=== PATIENT | female | born 1995 | race Caucasian/White ===

== ENCOUNTER → 2019-06-29 14:10 | Outpatient (CLI) | payer OTHER, SELFPAY ==
[2019-06-29 15:28] LABS: hCG Titer Quant., Serum 12687 mIU/mL (1-3)
== END ==
PROVIDERS: Visit Provider Nurse Practitioner Women's Health
DX: N91.2 Amenorrhea, unspecified (principal)
CPT/HCPCS: 36415; 84702

== ENCOUNTER → 2019-07-22 13:27 | Outpatient (CLI) | payer OTHER, SELFPAY ==
[2019-07-22 08:08] VITALS: BMI 23.8
[2019-07-22 21:40] LABS: Chlamydia Trachomatis by PCR Negative (Negative); Neisserai gonorrhoeae by PCR Negative (Negative); Probe Check PASS; Sample Adequacy Control PASS; Specimen Processing Control PASS
[2019-07-26 16:58] LABS: HPV Reflexed? NOT INDICATED
== END ==
PROVIDERS: Referring Provider Obstetrics & Gynecology; Visit Provider Obstetrics & Gynecology
DX: Z34.90 Encounter for supervision of normal pregnancy, unspecified, unspecified trimester (principal); Z12.4 Encounter for screening for malignant neoplasm of cervix
CPT/HCPCS: 87086; 87491; 87591; 88175; G0145

== ENCOUNTER → 2019-08-22 11:12 | Outpatient (CLI) | payer OTHER, SELFPAY ==
[2019-08-22 10:52] VITALS: BMI 23.8
[2019-08-22 11:51] LABS: Absolute Lymphocyte Count 0.96 X10^3/uL (0.83-4.51); Absolute Neutrophil Count 8.9 X10^3/uL (2.0-7.7); Basophil# 0.02 X10^3/uL; Basophil% 0.2 % (0-1); Eosinophil# 0.05 X10^3/uL; Eosinophils% 0.5 % (0-5); Hematocrit 39.3 % (37-47); Hemoglobin 13.9 g/dL (12.0-15.0); Lymphocyte # 0.96 X10^3/ul (4.0); Lymphocyte % 9.3 % (19-41); Mean Corp Hgb Conc 35.4 g/dL (32-36); Mean Corpuscular Hgb 31.8 pg (27.0-32.0); Mean Corpuscular Volume 89.9 fL (81-99); Mean Platelet Vol. 9.5 fl (6.2-12.0); Monocyte# 0.44 X10^3/uL; Monocyte% 4.2 % (0-10); NRBC Flagged by Analyzer 0 % (0-5); Neutrophil # 8.87 X10^3/uL (2.7-7.7); Neutrophil % 85.5 % (47-70); Platelet Count 160 K/mm3 (150-450); RBC Distribution Width SD 39.1 fl (35.1-43.9); Red Blood Count 4.37 M/mm3 (4.2-5.4); White Blood Count 10.4 K/mm3 (4.4-11.0)
[2019-08-22 12:23] LABS: NATERA MAILED SPECIMEN
[2019-08-22 14:37] LABS: Hepatitis B Surface Antigen Non-Reactive (Nonreactive); Hepatitis C Antibody Non-Reactive (Nonreactive); Rubella IgG 19.1 IU/mL
[2019-08-22 20:09] LABS: HIV - WCH Non-Reactive (Nonreactive)
[2019-08-29 02:55] LABS: Rapid Plasmin Reagin (RPR) NONREACTIVE (NONREACTIVE)
== END ==
PROVIDERS: Referring Provider Obstetrics & Gynecology; Visit Provider Obstetrics & Gynecology
DX: Z34.81 Encounter for supervision of other normal pregnancy, first trimester (principal); Z31.430 Encounter of female for testing for genetic disease carrier status for procreative management
CPT/HCPCS: 36415; 85025; 86592; 86703; 86762; 86803; 86850; 86900; 86901; 87340

== ENCOUNTER → 2019-12-11 11:45 | Outpatient (CLI) | payer OTHER, SELFPAY ==
[2019-12-11 11:07] VITALS: BMI 29.6
[2019-12-11 12:39] LABS: Absolute Lymphocyte Count 1.27 X10^3/uL (0.83-4.51); Basophil# 0.02 X10^3/uL; Basophil% 0.3 % (0-1); Eosinophil# 0.05 X10^3/uL; Eosinophils% 0.6 % (0-5); Hematocrit 36.9 % (37-47); Hemoglobin 12.5 g/dL (12.0-15.0); Lymphocyte # 1.27 X10^3/ul (4.0); Lymphocyte % 16.2 % (19-41); Mean Corp Hgb Conc 33.9 g/dL (32-36); Mean Corpuscular Volume 94.4 fL (81-99); Mean Platelet Vol. 9.9 fl (6.2-12.0); Monocyte# 0.48 X10^3/uL; Monocyte% 6.1 % (0-10); NRBC Flagged by Analyzer 0 % (0-5); Neutrophil # 5.95 X10^3/uL (2.7-7.7); Neutrophil % 75.9 % (47-70); Platelet Count 129 K/mm3 (150-450); RBC Distribution Width CV 12.6 % (11.6-14.6); RBC Distribution Width SD 43.2 fl (35.1-43.9); Red Blood Count 3.91 M/mm3 (4.2-5.4); White Blood Count 7.8 K/mm3 (4.4-11.0)
[2019-12-11 13:00] LABS: Glucose Challenge Gest 1H 50g 78 mg/dL (70-140)
== END ==
LOC: LAB 11:46
PROVIDERS: Referring Provider Obstetrics & Gynecology; Visit Provider Obstetrics & Gynecology
DX: O26.899 Other specified pregnancy related conditions, unspecified trimester (principal); R87.612 Low grade squamous intraepithelial lesion on cytologic smear of cervix (LGSIL); Z67.91 Unspecified blood type, Rh negative; Z3A.28 28 weeks gestation of pregnancy
CPT/HCPCS: 36415; 82950; 85025; 86850; 86900; 86901

== ENCOUNTER → 2020-02-07 | Outpatient (CLI) | payer OTHER, SELFPAY ==
[2020-02-07 08:50] VITALS: BMI 29.6
== END | disposition home or self-care (01) ==
LOC: LABSPEC 12:50
PROVIDERS: Referring Provider Obstetrics & Gynecology; Visit Provider Obstetrics & Gynecology
DX: Z34.93 Encounter for supervision of normal pregnancy, unspecified, third trimester (principal); Z3A.36 36 weeks gestation of pregnancy
CPT/HCPCS: 87081

== ENCOUNTER 2020-02-13 09:55 | Outpatient (CLI) | payer OTHER, MEDICAID, SELFPAY ==
[2020-02-13] VITALS (13 sets, daily range): BP systolic 121–141; BP diastolic 76–100; PULSE 93–115; BMI 29.6; BMI 34.7
[2020-02-13 10:32] LABS: Hematocrit 39.9 % (37-47); Hemoglobin 13.7 g/dL (12.0-15.0); Mean Corp Hgb Conc 34.3 g/dL (32-36); Mean Corpuscular Hgb 32.5 pg (27.0-32.0); Mean Corpuscular Volume 94.8 fL (81-99); Mean Platelet Vol. 11.2 fl (6.2-12.0); Platelet Count 134 K/mm3 (150-450); RBC Distribution Width CV 12.2 % (11.6-14.6); RBC Distribution Width SD 42.3 fl (35.1-43.9); Red Blood Count 4.21 M/mm3 (4.2-5.4); White Blood Count 9.6 K/mm3 (4.4-11.0)
[2020-02-13 11:00] LABS: Prothrombin Time (Protime)PT. 13.1 SECONDS (11.7-14.9)
[2020-02-13 11:01] LABS: Partial Thromboplast Time 28.8 Seconds (24.1-36.2)
[2020-02-13 11:19] LABS: Protein, Urine (Random) 24.4 mg/dL (<11.9); Protein:Creat Ratio 174 mg/g CRE (0-200)
[2020-02-13 12:34] LABS: AST(SGOT) 17 U/L (15-37); Alanine Aminotransfer ALT/SGPT 13 U/L (13-56); EST Glomerular Filtration Rate 107 mL/min (>60); Est Glom Filt Rate - Afr Amer 129 mL/min (>60); Estimated Creatinine Clearance 96.32 ml/min; Uric Acid 5.3 mg/dL (2.6-6.0)
[2020-02-14 10:11] VITALS: BP 118/62; PULSE 120
--- NOTE | 2020-02-14 22:13 | OB.TRI.PN_ITS ---
Progress Notes Date of Service: 02/13/20 Progress Note: Patient presents for triage evaluation secondary to elevated blood pressures in the office FHT: 130 Moderate variability reactive no decelerations category I tracing [place]: Irritability contractions Assessment and plan: Gestational hypertension normal labs negative proteinuria patient is asymptomatic but blood pressures are 140s over 90s recommend delivery since she is after 37 weeks. Due to staffing availability will return tomorrow induction of labor reactive NST, reassuring maternal and status patient discharged to home to follow-up for induction of labor tomorrow with Pitocin and Church bulb. See problem list details for additional plan information. Laboratory Studies: Laboratory Tests 02/13/20 02/13/20 02/13/20 Range/Units 13:30 10:13 10:10 WBC (4.4-11.0) K/mm3 RBC (4.2-5.4) M/mm3 Hgb (12.0-15.0) g/dL Hct (37-47) % MCV (81-99) fL MCH (27.0-32.0) pg MCHC (32-36) g/dL RDW Std Deviation (35.1-43.9) fl RDW Coeff of Vazquez (11.6-14.6) % Plt Count (150-450) K/mm3 MPV (6.2-12.0) fl PT (11.7-14.9) SECONDS INR APTT (24.1-36.2) Seconds Creatinine 0.70 (0.55-1.02) mg/dL Estim Creat Clear Calc 96.32 ml/min Est GFR (MDRD) Af Amer 129 (>60) mL/min Est GFR (MDRD) Non-Af 107 (>60) mL/min Uric Acid 5.3 (2.6-6.0) mg/dL AST 17 (15-37) U/L ALT 13 (13-56) U/L U Random Total Protein 24.4 H (<11.9) mg/dL Urine Creatinine 140.00 (NO RANGE EST.) mg/dL Protein/Creatinin Ratio 174 (0-200) mg/g CRE COVID-19 (KAYLI) Not Detected (Not Detect) 02/13/20 02/13/20 Range/Units 10:10 10:10 WBC 9.6 (4.4-11.0) K/mm3 RBC 4.21 (4.2-5.4) M/mm3 Hgb 13.7 (12.0-15.0) g/dL Hct 39.9 (37-47) % MCV 94.8 (81-99) fL MCH 32.5 H (27.0-32.0) pg MCHC 34.3 (32-36) g/dL RDW Std Deviation 42.3 (35.1-43.9) fl RDW Coeff of Vazquez 12.2 (11.6-14.6) % Plt Count 134 L (150-450) K/mm3 MPV 11.2 (6.2-12.0) fl PT 13.1 (11.7-14.9) SECONDS INR 1.0 APTT 28.8 (24.1-36.2) Seconds Creatinine (0.55-1.02) mg/dL Estim Creat Clear Calc ml/min Est GFR (MDRD) Af Amer (>60) mL/min Est GFR (MDRD) Non-Af (>60) mL/min Uric Acid (2.6-6.0) mg/dL AST (15-37) U/L ALT (13-56) U/L U Random Total Protein (<11.9) mg/dL Urine Creatinine (NO RANGE EST.) mg/dL Protein/Creatinin Ratio (0-200) mg/g CRE COVID-19 (KAYLI) (Not Detect) - Problem List (1) Gestational hypertension Status: Acute Multi Select Codes - Urinary/Genital Urinary/Genital CPT Codes: 31284-77 non-stress test Interp
== END 2020-02-13 14:00 | disposition home or self-care (01) ==
LOC: WPOUT 10:01 → WP 10:02
PROVIDERS: Referring Provider Obstetrics & Gynecology; Visit Provider Obstetrics & Gynecology
DX: O13.3 Gestational [pregnancy-induced] hypertension without significant proteinuria, third trimester (principal); Z3A.37 37 weeks gestation of pregnancy
CPT/HCPCS: 36415; 59025; 59050; 82565; 82570; 84156; 84450; 84460; 84550; 85027; 85610; 85730; 87635; 94799; 99218; G2023; G0378; U0003

== ENCOUNTER 2020-02-14 14:10 | Inpatient (IN) | payer OTHER, MEDICAID, SELFPAY ==
[2020-02-13 10:13] VITALS: BMI 34.7
[2020-02-14] VITALS (20 sets, daily range): BP systolic 110–145; BP diastolic 61–100; PULSE 74–142; RESP 17–18; TEMP 36.4–37.3; O2SAT 97–98; BMI 34.4
[2020-02-14] MEDS: Lactated Ringers 1,000 ML 50 ML IV (14:25)
[2020-02-14] MEDS: Oxytocin 30 units/NS 500 ml 30 UNITS/500 ML IV.SOLN IV (14:55)
[2020-02-14] MEDS: 0.9% Normal Saline Single 100 ML IV.SOLN. IY (14:58)
[2020-02-14 15:09] LABS: Absolute Lymphocyte Count 1.04 X10^3/uL (0.83-4.51); Absolute Neutrophil Count 7.3 X10^3/uL (2.0-7.7); Basophil# 0.01 X10^3/uL; Basophil% 0.1 % (0-1); Eosinophil# 0.01 X10^3/uL; Eosinophils% 0.1 % (0-5); Hematocrit 39.6 % (37-47); Hemoglobin 13.5 g/dL (12.0-15.0); Lymphocyte # 1.04 X10^3/ul (4.0); Lymphocyte % 11.5 % (19-41); Mean Corp Hgb Conc 34.1 g/dL (32-36); Mean Corpuscular Hgb 32.3 pg (27.0-32.0); Mean Corpuscular Volume 94.7 fL (81-99); Mean Platelet Vol. 11.4 fl (6.2-12.0); Monocyte# 0.57 X10^3/uL; Monocyte% 6.3 % (0-10); NRBC Flagged by Analyzer 0 % (0-5); Neutrophil # 7.33 X10^3/uL (2.7-7.7); Neutrophil % 81.3 % (47-70); Platelet Count 150 K/mm3 (150-450); RBC Distribution Width CV 12.3 % (11.6-14.6); RBC Distribution Width SD 42.5 fl (35.1-43.9); Red Blood Count 4.18 M/mm3 (4.2-5.4)
[2020-02-14 15:25] LABS: ALB/GLOB Ratio 0.7 RATIO (0.9-2.4); AST(SGOT) 22 U/L (15-37); Alanine Aminotransfer ALT/SGPT 16 U/L (13-56); Albumin, Serum 2.8 g/dL (3.2-5.0); Alkaline Phosphatase 133 U/L (45-117); Anion Gap 7 (5-15); BUN 12 mg/dL (7-18); BUN/Creat Ratio 18.9 RATIO (10-20); Calcium,Total 8.9 mg/dL (8.5-10.1); Chloride 109 mmol/L (98-107); Creatinine, Serum 0.64 mg/dL (0.55-1.02); EST Glomerular Filtration Rate 120 mL/min (>60); Est Glom Filt Rate - Afr Amer 146 mL/min (>60); Estimated Creatinine Clearance 105.35 ml/min; Globulin 3.9 g/dL (2.2-4.2); Glucose 114 mg/dL (74-106); Potassium 3.8 mmol/L (3.5-5.1); Protein, Total 6.7 g/dL (6.4-8.2); Sodium Level 138 mmol/L (136-145)
[2020-02-14] MEDS: Lactated Ringers 500 ML 999 ML IV ×2 (18:56→20:26)
[2020-02-14] MEDS: Mag Hydrox/Al Hydrox/Simeth 30 ML UDC PO (19:42)
[2020-02-14] MEDS: Sodium Citrate/Citric Acid 30 ML UDC PO (20:58)
--- NOTE | 2020-02-14 21:05 | PCM.HP.OB ---
- Problem List (1) Gestational hypertension Status: Acute (2) Gestational thrombocytopenia Status: Acute Comment: stable (3) Rh negative status during Status: Acute Qualifiers: Comment: rhogam at 28 weeks and PRN (4) LGSIL on Pap smear of cervix Status: Acute Comment: colp consistent 10/03. plan PP pap (5) Status: Acute Qualifiers: Comment: NIPT low risk. Carrier screening negative. declined ntd screening. Anatomy nl. (6) Supervision of normal Status: Acute Qualifiers: Comment: PRR ROMULO 02/29/20 Girl Helen boyhina Art (juan miguel) History Date of Admission: 02/14/20 Final ROMULO: 02/29/20 Gestational age: 37 Weeks and 6 Days History of this : This is a 25 year-old, , at 37 weeks gestational age presents IOL GHTN. She was seen in the office yesterday and was noted to have elevated blood pressures in the 140s over 90s. Patient had normal laboratory evaluation except for gestational thrombocytopenia that was stable. Negative proteinuria. Patient's induction was on hold due to staffing and brought in today for induction of labor via Pitocin and Church bulb. Allergies No Known Allergies Allergy (Verified 02/14/20 14:31) Home Medications: Home Medications docosahexaenoic acid 200 mg capsule 200 mg PO DAILY cap 07/22/19 Smoking Status: Never smoker Number of Fetus(es): 1 NST - FHR Rate Baby A Baseline: 130 Variability:: Moderate Accelerations:: 15 x 15 Decelerations:: None NST Reactive:: Yes FHR Category:: Category I Uterine Activity:: no regular History Past Pregnancies: Past Pregnancies Delivery Date Name GA/ Weeks Outcome Route Wt Infant Sex Labor Length Anesthesia Delivery Location Provider FOB Labs: [facility] & Results 02/14/20 02/14/20 02/14/20 14:25 14:25 14:25 WBC 9.0 RBC 4.18 L Hgb 13.5 Hct 39.6 MCV 94.7 MCH 32.3 H MCHC 34.1 RDW Std Deviation 42.5 RDW Coeff of Vazquez 12.3 Plt Count 150 MPV 11.4 Immature Gran % (Auto) 0.700 Neut % (Auto) 81.3 H Lymph % (Auto) 11.5 L Wilkin % (Auto) 6.3 Eos % (Auto) 0.1 Baso % (Auto) 0.1 Absolute Neuts (auto) 7.3 Absolute Lymphs (auto) 1.04 Nucleated RBC % 0 Sodium 138 Potassium 3.8 Chloride 109 H Carbon Dioxide 22.0 Anion Gap 7 BUN 12 Creatinine 0.64 Estim Creat Clear Calc 105.35 Est GFR (MDRD) Af Amer 146 Est GFR (MDRD) Non-Af 120 BUN/Creatinine Ratio 18.9 Glucose 114 H Calcium 8.9 Total Bilirubin 0.40 AST 22 ALT 16 Alkaline Phosphatase 133 H Total Protein 6.7 Albumin 2.8 L Globulin 3.9 Albumin/Globulin Ratio 0.7 L Blood Type O NEGATIVE Antibody Screen NEGATIVE Course Did the patient receive Yes care? Labs Blood Type: O RH: NEGATIVE RPR/VDRL/Syphilis Nonreactive Rubella status Immune HbSAg Negative Date Done: 08/22/19 Chlamydia Negative Gonorrhea Negative HIV/AIDS Non-Reactive Group B Strep: Negative Current Obstetrical History Gestational Diabetes No Incompetent Cervix No Infertility No IUGR No Macrosomia No Hypertension/Pre-eclampsia Yes Placenta Previa/Abruption No PTL/PROM No Uterine anomaly No Oligohydramnios No Polyhydramnios No Multiple gestation No Past Medical History Asthma No Diabetes No Hypertension No Heart disease No Mitral valve prolapse No Neurologic/Seizure disorder/ No Migraines Kidney disease No Liver disease No Varicosities No Clotting disorders/Hx of DVT No Thyroid Dysfunction No Other medical diseases No Psychiatric disorders No Major trauma No Abnormal PAP smear No Sleep apnea No Mammogram in the last 2 years No Social History Marital Status: SINGLE Alleged father Rubens Caldwell Hx Smoking No Smoking Status Never smoker Expected Delivery Method: Spontaneous Vaginal Review of Systems Constitutional: Denies: Fever, Malaise Eyes: Denies: Blurred vision, Vision Change HEENT: Denies: Head Aches, Visual Changes Cardiovascular: Denies: Chest Pain, Palpitations Respiratory: Denies: Cough, Shortness of Breath, Wheezing Gastrointestinal: Denies: Abdominal Pain, Diarrhea, Nausea, Vomiting Genitourinary: Denies: Dysuria, Hematuria Musculoskeletal: Denies: Joint Pain, Muscle pain Skin: Denies: Lesions, Rash Neurological: Denies: Blurred vision, Focal weakness, Headaches Psychiatric: Denies: Anxiety, Depression Endocrine: Denies: Heat/ Cold Intolerance Hematologic/ Lymphatic: Denies: Easy Bruising, Easy Bleeding Physical Exam Vitals: Vital Signs Temp Pulse BP Pulse Ox 98.8 F 92 145/88 H 98 02/14/20 20:57 02/14/20 20:59 02/14/20 20:59 02/14/20 20:05 General: Alert, Cooperative, No apparent distress HEENT: Atraumatic, Normocephalic. Negative for: Thyromegaly, Lymphadenopathy Cardiovascular: Regular rate Lungs: Normal air movement Abdomen: Soft, Non Tender, Gravid Neurological: Deep Tendon Reflexes 2+/4 and Symmetrical, Neuro grossly intact. 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 Negative for: Vulvar lesions Estimated gestational size: Appropriate for gestational size Presentation: Cephalic Cervix Dilation (cm): 1.5 Station: -2 Effacement (%): 50 Assessment/Plan All Active Problems (Last Reviewed 02/13/20 @ 09:26 by Lata Rubio) Gestational hypertension (Acute) Gestational thrombocytopenia (Acute) Rh negative status during (Acute) LGSIL on Pap smear of cervix (Acute) (Acute) Supervision of normal (Acute) This is a 25 year-old, at 37 weeks gestational age presents for induction labor secondary to gestational hypertension Patient presents IOL, plan management for , pitocin/AROM after Church bulb. Pain management: [plans epidural]. GBS [negative]. Management of any complications: Gestational hypertension monitor blood pressures, repeat CMP I have reviewed the [facility] and made any clinically relevant updates..
--- NOTE | 2020-02-14 21:09 | PCM.PN.BLA ---
Progress Note Upon rupture of membranes presenting part was noted to be abnormal to palpation and therefore ultrasound was performed and confirmed breech presentation. Patient counseled and decision for primary low transverse secondary to breech STROKE Vital Signs/Narrative: Vital Signs Temp Pulse BP Pulse Ox 02/14/20 20:59 92 145/88 H 02/14/20 20:57 98.8 F 02/14/20 20:05 90 130/76 H 98 02/14/20 20:04 99.1 F 02/14/20 19:19 98 02/14/20 19:16 97.6 F L 100 137/81 H 02/14/20 18:47 93 127/72 H 02/14/20 17:56 98.4 F 02/14/20 17:54 96 125/92 H
[2020-02-14] MEDS: Cefazolin 2 GM in 0.9% Normal Saline 100 ML IV (21:12)
--- NOTE | 2020-02-14 21:59 | PCM.OPRPT ---
Problem List (1) Gestational hypertension Status: Acute (2) Gestational thrombocytopenia Status: Acute Comment: stable (3) Rh negative status during Status: Acute Qualifiers: Comment: rhogam at 28 weeks and PRN (4) LGSIL on Pap smear of cervix Status: Acute Comment: colp consistent 10/03. plan PP pap (5) Status: Acute Qualifiers: Comment: NIPT low risk. Carrier screening negative. declined ntd screening. Anatomy nl. (6) Supervision of normal Status: Acute Qualifiers: Comment: PRR ROMULO 02/29/20 Girl Helen Art (juan miguel) Delivery Classification: SARAH Final ROMULO: 02/29/20 Gestational age: 37 Weeks and 6 Days office coordinator: april pavon Type of Anesthesia:: Spinal Special Medications: none Implants Used: none Date of Procedure: 02/14/20 Pre-Operative Diagnosis: iol ghtn, confirmed to be breech after start of induction Post-Operative Diagnosis: same Indications for : Breech Description of Procedure: The patient is a [ ] presented for [repeat] . Spinal anesthesia was placed without difficulty. Church catheter was placed. The patient was placed in the dorsal supine position with leftward tilt. Patient was prepped and draped in the normal sterile fashion. Pfannenstiel skin incision was made with the scalpel and carried through to the underlying layer of fascia with the scalpel. Fascia was nicked in the midline and the incision extended laterally. The rectus bellies were dissected off superiorly and inferiorly with out complication both sharply and bluntly. The peritoneum was entered digitally. The incision was stretched and a low transverse uterine incision was made with the scalpel. The infant's buttocks was elevated and delivered without complication, the legs swept anteriorly and delivered providing downward traction on the back of the hips the body was delivered and the right and left arms were swept anteriorly and the chin flexed to allow delivery of the head without complication the rest of the delivered. Delayed cord clamping was employed and then the cord was clamped and cut and the was handed off to awaiting nurse. The placenta was delivered spontaneously immediately following and was noted to be intact and have a three-vessel cord. The uterus was exteriorized cleared of all clots and debris, and the incision was closed in a double layer closure using #1 Monocryl. The ovaries and fallopian tubes were noted to be within normal limits. The uterus was returned to the maternal abdomen and gutters were cleared of all clots and debris. The peritoneum was closed with 3-0 Monocryl in a running fashion. Gloves were changed prior to fascial closure. Fascia was closed with 0 PDS in a running fashion. Subcutaneous tissue was copiously irrigated and the skin was closed with 3-0 Monocryl in a subcuticular fashion. Mepilex dressing was applied without complication. Patient was taken to recovery in stable condition. It was discussed with the patient that based on the clinical information obtained during this encounter, combined with her history, at this time I would recommend vaginal or cesareans for future deliveries if further pregnancies are desired. Amniotic Membrane Rupture Type: Artificial Amniotic Fluid Description: Clear Placenta Disposition: [facility] Specimen(s) sent to pathology: no Fluids Replaced: Crystalloid Cord Entanglement: None Cord Vessel Description: 3 Vessels Gender: Female Delayed cord clamping: Yes Antibiotic Given: Ancef 2 grams IV x1 Pt instructed on risks of surgery: Bleeding, Anesthesia Risks, Infection, Injury to surrounding structure(s) including bowel and bladder Complications: None - Admit VTE Documentation VTE Present on Admission: No VTE Mechan Device Prophylaxis: SCD's Multi Select Codes - Urinary/Genital Urinary/Genital CPT Codes: 74847 Delivery [facility]
[2020-02-14] MEDS: Oxytocin 30 units/NS 500 ml 30 UNITS/500 ML IV.SOLN 167 UNITS IV (22:15)
--- NOTE | 2020-02-14 23:11 | DCINST_ITS ---
Discharge Diet: No Restrictions Discharge Activity: May Not Drive - for 2 weeks, May not drive while taking narcotic pain medications., May Shower, May Take a Tub Bath - in 7 days May resume sexual activity in: 4-6 weeks Lifting Restrictions: 20 pounds Additional Activity Instructions:: Nothing in the vagina for 4-6 weeks. You may return to work/school in 6 weeks. Call your doctor if your incision/area has: Continuous Slow Oozing, Sudden Increased Bleeding, Increased Pain/ Swelling, Increased Redness, Foul Smelling Discharge Call your doctor if you observe: Fever of 101 or Higher, Using more than one pad per hour - for 2 hours Suture Line Care: Avoid Pulling/Pushing, Avoid Pinching/Bending Cleanse incision/area with: Keep Dressing Clean & Dry Additional Instructions: If you experience any of the following, contact your healthcare provider. * Bleeding that soaks a pad every hour for 2 hours * Fever 100.4 or higher * Unrelieved incision or abdominal pain * Swelling, redness, discharge or bleeding from your incision or episiotomy site * Your incision begins to separate * Problems urinating (including inability to urinate or burning while urinating). * Visual changes * Severe headache * Flu-like symptoms * Pain or redness in one of both of your breasts * Pain, warmth, tenderness or swelling in your legs, especially the calf area * Frequent nausea and vomiting * Symptoms of depression or anxiety If you experience any of the following, call 911 or go to the nearest Emergency Room. * Chest pain * Problems breathing * Seizure activity * Partial or complete paralysis of a body part, slurred speech, weakness or drooping of the face, or a sudden inability to walk or hold your balance Allergies/Adverse Reactions: Allergies No Known Allergies Allergy (Verified 02/14/20 14:31) Medications to take at Discharge docosahexaenoic acid 200 mg capsule 200 mg PO DAILY cap 07/22/19 Naproxen [Naprosyn] 250 - 500 mg PO Q8H PRN PRN #30 tab 02/14/20 Oxycodone HCl/Acetaminophen [Percocet 5-325] 1 - 2 tablet PO Q6H PRN PRN 7 Days #15 tablet 02/14/20 The following prescriptions were given: Naproxen [Naprosyn] 250 - 500 mg PO Q8H PRN PRN #30 tab PRN Reason: MILD PAIN Transmission Status: Pending to [facility] Oxycodone HCl/Acetaminophen [Percocet 5-325] 1 - 2 tablet PO Q6H PRN PRN 7 Days #15 tablet PRN Reason: Pain Transmission Status: Sent to [facility] Follow-Up: Call to make an appointment with your doctor for an incision check in 1-2 weeks. You will also need a 6 week post- follow up appointment. Test results from this visit will be discussed in further detail at your follow- up appointment, if applicable. Please Follow Up With: Marilia Watts MD - Call to make an appointment for an incision check in 1-2 [phone] When: You will need a post- check in 6 weeks. Primary Care Physician: Care Physician,No Primary [Primary Care Provider] -
[2020-02-15] VITALS (14 sets, daily range): BP systolic 107–145; BP diastolic 66–88; PULSE 75–97; RESP 16–18; TEMP 36.4–37; O2SAT 97–99
[2020-02-15] MEDS: Acetaminophen 500 MG Tablet 1000 MG PO ×4 (00:07→18:53)
[2020-02-15] MEDS: Lactated Ringers 1,000 ML 100 ML IV (01:44)
[2020-02-15] MEDS: DiphenhydrAMINE 25 MG Capsule PO (02:34)
[2020-02-15] MEDS: Ketorolac 30 MG/ML Syringe IV ×4 (04:16→22:02)
[2020-02-15] MEDS: 0.9% Saline Lock 10 ML Syringe IV ×3 (04:16→22:02)
[2020-02-15 05:44] LABS: Hematocrit 34.2 % (37-47); Hemoglobin 11.8 g/dL (12.0-15.0); Mean Corp Hgb Conc 34.5 g/dL (32-36); Mean Corpuscular Volume 95.5 fL (81-99); Mean Platelet Vol. 10.8 fl (6.2-12.0); Platelet Count 130 K/mm3 (150-450); RBC Distribution Width CV 12.2 % (11.6-14.6); RBC Distribution Width SD 42.3 fl (35.1-43.9); Red Blood Count 3.58 M/mm3 (4.2-5.4); White Blood Count 11.4 K/mm3 (4.4-11.0)
[2020-02-15] MEDS: Senna/Docusate Sodium 1 Tablet PO (10:22)
--- NOTE | 2020-02-15 10:49 | PCM.PN.OB ---
Patient Problems: Active and Suspected Problems (Last Reviewed 02/13/20 @ 09:26 by Lata Rubio) Gestational hypertension (Acute) Subjective: doing well no complaints pain controlled no CP SOB N V ambulating well tolerating po lochia moderate, going well - Physical Exam Vitals/I&O's: Vital Signs Temp Pulse Resp BP Pulse Ox 97.5 F L 81 16 107/66 97 02/15/20 08:00 02/15/20 08:00 02/15/20 08:00 02/15/20 08:00 02/15/20 08:00 Oxygen Delivery Method Room Air Weight: 188 lb 6 oz Body Mass Index (BMI) 34.4 Intake and Output for Last 24 Hours 02/13/20 02/14/20 02/15/20 23:59 23:59 23:59 Intake Total 1715.18 / 1715.18 850 / 850 Output Total 200 / 200 275 / 275 Balance 1515.18 / 1515.18 575 / 575 General: Alert, Oriented x3 Laboratory Results 02/14/20 14:25: WBC 9.0, RBC 4.18 L, Hgb 13.5, Hct 39.6, MCV 94.7, MCH 32.3 H, MCHC 34.1, RDW Std Deviation 42.5, RDW Coeff of Vazquez 12.3, Plt Count 150, MPV 11.4, Immature Gran % (Auto) 0.700, Neut % (Auto) 81.3 H, Lymph % (Auto) 11.5 L, [place] % (Auto) 6.3, Eos % (Auto) 0.1, Baso % (Auto) 0.1, Absolute Neuts (auto) 7.3, Absolute Lymphs (auto) 1.04, Nucleated RBC % 0 02/14/20 14:25: Blood Type O NEGATIVE, Antibody Screen NEGATIVE 02/14/20 14:25: Sodium 138, Potassium 3.8, Chloride 109 H, Carbon Dioxide 22.0, Anion Gap 7, BUN 12, Creatinine 0.64, Estim Creat Clear Calc 105.35, Est GFR (MDRD) Af Amer 146, Est GFR (MDRD) Non-Af 120, BUN/Creatinine Ratio 18.9, Glucose 114 H, Calcium 8.9, Total Bilirubin 0.40, AST 22, ALT 16, Alkaline Phosphatase 133 H, Total Protein 6.7, Albumin 2.8 L, Globulin 3.9, Albumin/Globulin Ratio 0.7 L 02/15/20 05:30: WBC 11.4 H, RBC 3.58 L, Hgb 11.8 L, Hct 34.2 L, MCV 95.5, MCH 33.0 H, MCHC 34.5, RDW Std Deviation 42.3, RDW Coeff of Vazquez 12.2, Plt Count 130 L, MPV 10.8 Current Medications Acetaminophen (Tylenol) 1,000 mg PO Q6 [facility] Last Admin: 02/15/20 06:19 Dose: 1,000 mg Documented by: Bisacodyl (Dulcolax) 10 mg RECTAL UD PRN PRN Reason: If no BM Diphenhydramine HCl (Benadryl) 25 mg PO Q6H PRN PRN PRN Reason: ITCHING Stop: 02/16/20 02:29 Last Admin: 02/15/20 02:34 Dose: 25 mg Documented by: Hydrocortisone (Hytone) 1 applic TOPICAL TID PRN PRN; Protocol PRN Reason: Discomfort Lactated Ringer's () 1,000 mls @ 100 mls/hr IV .Q10H [facility] Last Admin: 02/15/20 01:44 Dose: 100 mls/hr Documented by: Naloxone HCl 4 mg/ Dextrose 504 mls @ 0 mls/hr IV .Q0M PRN; Protocol PRN Reason: Respiratory depression Ketorolac Tromethamine (Toradol (Bkc)) 30 mg IV Q6H [facility] Stop: 02/15/20 22:01 Last Admin: 02/15/20 10:22 Dose: 30 mg Documented by: Methylergonovine Maleate (Methergine) 0.2 mg IM X1 PRN PRN Reason: Uterine Atony Nalbuphine HCl (Nubain) 5 mg IV Q3H PRN PRN PRN Reason: ITCHING Stop: 02/16/20 02:29 Naloxone HCl (Narcan) 0.02 mg IV Q1M PRN PRN Reason: RR <10 and pt unresponsive Naproxen (Naprosyn) 500 mg PO Q8H NOE Ondansetron HCl (Zofran) 4 mg IV Q4H PRN PRN PRN Reason: Nausea Oxycodone HCl (Oxyir) 5 - 10 mg PO Q4H PRN PRN PRN Reason: Pain Score 4-10/10 Multivit/Folic Acid/Iron (Prenatabs Fa) 1 tablet PO DAILY@1200 NOE Prochlorperazine Edisylate (Compazine Iv) 10 mg IV Q6H PRN PRN PRN Reason: NAUSEA Senna/Docusate Sodium (Senokot-S, Latosha-Colace) 0 tablet PO DAILY NOE Last Admin: 02/15/20 10:22 Dose: 1 tablet Documented by: Simethicone (Mylicon) 80 mg PO PCHS PRN PRN Reason: Indigestion/stomach pain Sodium Chloride () 5 - 15 ml IV UD PRN PRN Reason: SALINE FLUSH Last Admin: 02/15/20 04:16 Dose: 10 ml Documented by: Medical Necessity - Tobacco Use Smoking Status: Never smoker Assessment/Plan All Active Problems (Last Reviewed 02/13/20 @ 09:26 by Lata Rubio) Gestational hypertension (Acute) Gestational thrombocytopenia (Acute) Rh negative status during (Acute) LGSIL on Pap smear of cervix (Acute) (Acute) Supervision of normal (Acute) s/p LTCS PPD # 1 1. routine post care 2. breast feeding- support given 3. rh neg- rhogam PRN 4. rubella immune
[2020-02-15] MEDS: Prenatal Vits Tablet 1 TABLET PO (12:38)
--- NOTE | 2020-02-15 14:21 | NURSING ---
1100 pt up walking around room independently gait steady; pt to chair
[2020-02-16 00:18] VITALS: BP 135/83; PULSE 93; RESP 16; TEMP 36.5; O2SAT 98
[2020-02-16] MEDS: Acetaminophen 500 MG Tablet 1000 MG PO ×3 (00:45→13:04)
[2020-02-16 04:08] VITALS: BP 125/79; PULSE 86; RESP 16; TEMP 36.5; O2SAT 98
[2020-02-16] MEDS: Naproxen 250 MG Tablet 500 MG PO ×2 (04:10→12:04)
[2020-02-16 08:00] VITALS: BP 127/68; PULSE 82; RESP 18; TEMP 36.3; O2SAT 97
--- NOTE | 2020-02-16 10:33 | PN.OBGYN_ITS ---
Patient Problems: Active and Suspected Problems (Last Reviewed 02/13/20 @ 09:26 by Lata Rubio) Gestational hypertension (Acute) Subjective: doing well no complaints pain controlled no CP SOB N V ambulating well tolerating po lochia moderate, going well - Physical Exam Vitals/I&O's: Vital Signs Temp Pulse Resp BP Pulse Ox 97.3 F L 82 18 127/68 H 97 02/16/20 08:00 02/16/20 08:00 02/16/20 08:00 02/16/20 08:00 02/16/20 08:00 Oxygen Delivery Method Room Air Weight: 188 lb 6 oz Body Mass Index (BMI) 34.4 Intake and Output for Last 24 Hours 02/14/20 02/15/20 02/16/20 23:59 23:59 23:59 Intake Total 1715.18 / 1715.18 1751.67 / 1751.67 Output Total 200 / 200 1375 / 1375 Balance 1515.18 / 1515.18 376.67 / 376.67 General: Alert, Oriented x3 Current Medications Acetaminophen (Tylenol) 1,000 mg PO Q6 NOE Last Admin: 02/16/20 06:57 Dose: 1,000 mg Documented by: Bisacodyl (Dulcolax) 10 mg RECTAL UD PRN PRN Reason: If no BM Hydrocortisone (Hytone) 1 applic TOPICAL TID PRN PRN; Protocol PRN Reason: Discomfort Naloxone HCl 4 mg/ Dextrose 504 mls @ 0 mls/hr IV .Q0M PRN; Protocol PRN Reason: Respiratory depression Methylergonovine Maleate (Methergine) 0.2 mg IM X1 PRN PRN Reason: Uterine Atony Naloxone HCl (Narcan) 0.02 mg IV Q1M PRN PRN Reason: RR <10 and pt unresponsive Naproxen (Naprosyn) 500 mg PO Q8H NOE Last Admin: 02/16/20 04:10 Dose: 500 mg Documented by: Ondansetron HCl (Zofran) 4 mg IV Q4H PRN PRN PRN Reason: Nausea Oxycodone HCl (Oxyir) 5 - 10 mg PO Q4H PRN PRN PRN Reason: Pain Score 4-10/10 Multivit/Folic Acid/Iron (Prenatabs Fa) 1 tablet PO DAILY@1200 NOE Last Admin: 02/15/20 12:38 Dose: 1 tablet Documented by: Prochlorperazine Edisylate (Compazine Iv) 10 mg IV Q6H PRN PRN PRN Reason: NAUSEA Senna/Docusate Sodium (Senokot-S, Latosha-Colace) 0 tablet PO DAILY [facility] Last Admin: 02/15/20 10:22 Dose: 1 tablet Documented by: Simethicone (Mylicon) 80 mg PO PCHS PRN PRN Reason: Indigestion/stomach pain Sodium Chloride () 5 - 15 ml IV UD PRN PRN Reason: SALINE FLUSH Last Admin: 02/15/20 22:02 Dose: 10 ml Documented by: Medical Necessity - Tobacco Use Smoking Status: Never smoker Assessment/Plan All Active Problems (Last Reviewed 02/13/20 @ 09:26 by Lata Rubio) Gestational hypertension (Acute) Gestational thrombocytopenia (Acute) Rh negative status during (Acute) LGSIL on Pap smear of cervix (Acute) (Acute) Supervision of normal (Acute) s/p LTCS PPD # 2 1. routine post care 2. breast feeding- support given 3. rh neg- rhogam PRN 4. rubella immune
[2020-02-16 12:00] VITALS: BP 145/85; PULSE 89; RESP 18; TEMP 35.9; O2SAT 97
[2020-02-16] MEDS: Prenatal Vits Tablet 1 TABLET PO (12:04)
[2020-02-16] MEDS: Senna/Docusate Sodium 1 Tablet PO (12:04)
[2020-02-16 13:08] VITALS: BP 144/86
--- NOTE | 2020-02-16 13:42 | NURSING ---
Patient educated on signs and symptoms of pre-eclampsia via discussion and handout. Patient instructed to notify Dr. Watts if she has s/s. Patient and significant other expresses understanding.
== END 2020-02-16 14:00 | disposition home or self-care (01) | DRG 787 ==
PROVIDERS: Admitting Provider Obstetrics & Gynecology; Referring Provider Obstetrics & Gynecology; Visit Provider Obstetrics & Gynecology
DX: O13.4 Gestational [pregnancy-induced] hypertension without significant proteinuria, complicating childbirth (principal); O99.12 Other diseases of the blood and blood-forming organs and certain disorders involving the immune mechanism complicating childbirth; O34.219 Maternal care for unspecified type scar from previous cesarean delivery; O32.1XX0 Maternal care for breech presentation, not applicable or unspecified; D69.6 Thrombocytopenia, unspecified; Z67.91 Unspecified blood type, Rh negative; Z3A.37 37 weeks gestation of pregnancy; Z37.0 Single live birth
CPT/HCPCS: 36415; 59025; 59050; 76815; 80053; 82565; 82570; 84156; 84450; 84460; 84550; 85025; 85027; 85610; 85730; 86850; 86900; 86901; 99218; J7120; A4216; G0378

== ENCOUNTER → 2020-04-02 | Outpatient (CLI) | payer OTHER, SELFPAY ==
[2020-04-02 14:47] VITALS: BMI 31.2
[2020-04-09 16:28] LABS: HPV APTIMA, High Risk Positive (Negative); HPV Reflexed? YES, CHARGE PATIENT
== END | disposition home or self-care (01) ==
LOC: LABSPEC 16:59
PROVIDERS: Referring Provider Obstetrics & Gynecology; Visit Provider Obstetrics & Gynecology
DX: Z12.4 Encounter for screening for malignant neoplasm of cervix (principal)
CPT/HCPCS: 87624; 88175; G0145

== ENCOUNTER → 2020-04-21 | Outpatient (CLI) | payer OTHER, MEDICAID, SELFPAY ==
--- NOTE | 2020-04-21 | IMM_PTH ---
PATIENT: NASRIN COBOS LOC: [facility] U#:[id number] AGE/SX: 25/F ROOM: RE04/21/[address]: Dr. Marita Gutierrez MD : [id number] BED: DIS: 04/21/2020 SPEC #: [id number] RECD: 04/23/20 14:34 STATUS: LAURENCE REQ #: [id number] CESAR: 04/21/20 00:[address]: Marita Gutierrez DEPT: IMMUNOHISTOCHEMISTRY RECD BY: Mariana Coffman ENTERED: 04/23/20 14:35 SP TYPE: IMMUNO OT DR: No Primary Care Phys Tissues: B - Uterine cervix, NOS Procedures: p16 (initial) KI-67 (add) PHYSICIAN & INSTITUTION [place] [id number] SPECIMEN INFORMATION: Tissue Source: B - Cervical biopsy 7 o'clock Clinical Info: JOEL Specimen Number: [id number] CPT code: 96916, 01890 METHODOLOGY: Deparaffinized sections of prefer/formalin-fixed tissue or PAP/DQ stained slides are incubated with monoclonal/polyclonal antibodies/oligonucleotide probes. Localization is made via biotin free immunoperoxidase method. Appropriate controls are performed and reacted as expected. Results on target cell population are indicated in the following table: RESULTS: ANTIBODY / CLONE RESULT Block B P16 (E6H4) positive, rare Ki-67 (30-9) negative These tests were developed and their performance characteristics determined by [facility]. They may not have been cleared or approved by the U.S. Food and Drug Administration. The FDA has determined that such clearance or approval is not necessary. The above immunohistochemical/dualISH markers are ordered and reviewed by the Pathologist. INTERPRETATION: B. Cervix at 7 o'clock, biopsy: Focal HPV change suspected. AM:neeraj 04/24/20
--- NOTE | 2020-04-21 | ECC_PTH ---
PATIENT: NASRIN COBOS LOC: [facility] U#:[id number] AGE/SX: 25/F ROOM: RE04/21/[address]: Dr. Marita Gutierrez MD : 1995 BED: DIS: 04/21/2020 SPEC #: [id number] RECD: 04/21/20 16:14 STATUS: LAURENCE JAKUB #: [id number] CESAR: 04/21/20 00:[address]: Marita Gutierrez DEPT: SURGICAL PATHOLOGY RECD BY: Jakub Montoya ENTERED: 04/22/20 13:16 SP TYPE: ECC SULMA DR: No Primary Care Phys Tissues: A - Endocervical B - Uterine cervix, NOS Procedures: Surgery Specimen Level IV HEADER OPERATION: Colposcopy PRE-OP DIAGNOSIS: LGSIL TISSUE SUBMITTED: A - ECC, B - Cervical biopsy 7 o'clock MICROSCOPIC DIAGNOSIS A. Endocervix, curettings: Benign superficial endocervix with squamous metaplasia and mild chronic inflammation. No evidence of dysplasia. B. Cervix at 7 o'clock, biopsy: Focal HPV change suspected. See comment. AM:neeraj 04/23/20 COMMENT B. Results from immunohistochemistry ([id number]) for surrogate HPV marker (p16) will be reported separately. Case has been reviewed in consultation with Dr. Chen who concurs with the above diagnosis. IDC:SJ MICROSCOPIC DESCRIPTION Slides are reviewed. GROSS DESCRIPTION A - Received in fixative is one container labeled with the patient's name and designated ECC. The specimen consists of multiple minute fragments of light shaikh soft tissue that in aggregate measure 1 x 0.5 x <0.1 cm. The specimen is totally submitted in one cassette. B - Received in fixative is one container labeled with the patient's name and designated cervical biopsy 7 o'clock. The specimen consists of one irregular fragment of light shaikh soft tissue that measures 0.6 x 0.6 x 0.1 cm. The specimen is totally submitted in one cassette. / AM:neeraj 04/22/20 TC:3 CPT: 38013 x2
[2020-04-21 10:09] VITALS: BMI 30.9
== END | disposition home or self-care (01) ==
LOC: LABSPEC 16:37
PROVIDERS: Referring Provider Obstetrics & Gynecology; Visit Provider Obstetrics & Gynecology
DX: R87.612 Low grade squamous intraepithelial lesion on cytologic smear of cervix (LGSIL) (principal)
CPT/HCPCS: 88305; 88341; 88342

== ENCOUNTER → 2021-06-09 | Outpatient (CLI) | payer MEDICAID, SELFPAY ==
[2021-06-15 22:06] LABS: HPV Genotype 16, Aptima Negative (Negative)
[2021-06-16 13:26] LABS: HPV APTIMA, High Risk Positive (Negative); HPV Genotype 18,45 Aptima Negative (Negative)
== END | disposition home or self-care (01) ==
LOC: LABSPEC 15:31
PROVIDERS: Visit Provider Physician Assistant
DX: Z12.4 Encounter for screening for malignant neoplasm of cervix (principal)
CPT/HCPCS: 87624; 88175; G0145

== ENCOUNTER → 2023-01-03 | Outpatient (CLI) | payer MEDICAID, SELFPAY ==
[2023-01-06 06:09] LABS: Chlamydia By Nucleic Acid AMP Negative (Negative); Gonococcus By Nucleic Acid AMP Negative (Negative)
== END | disposition home or self-care (01) ==
PROVIDERS: Visit Provider Advanced Practice Midwife
DX: N76.0 Acute vaginitis (principal)
CPT/HCPCS: 87070; 87077; 87186; 87205; 87491; 87591